=== PATIENT | female | born 1970 | race Caucasian/White ===

== ENCOUNTER 2017-02-01 15:12 | Inpatient (IN) | payer BC, OTHER ==
[~2017-02-01] VITALS: Ht 157.5 cm; Wt 61.2 kg
[2017-02-01] MEDS ORDERED: VALT500T PO (15:39)
[2017-02-01] MEDS ORDERED: LABE100T2 PO (15:39)
[2017-02-01] MEDS ORDERED: MONT10TA2 PO (15:39)
[2017-02-01 15:41] VITALS: BP 131/86; PULSE 75; RESP 17; TEMP 99.4; O2SAT 97
--- NOTE | 2017-02-01 16:07 | PD ---
HPI Chief Complaint: Injury Time Seen by Provider: 15:48 Travel History International Travel<30 days: No Contact w/Intl Traveler<30days: No Traveled to known affect area: No History of Present Illness HPI 46 F with left arm pain x approx 30 minutes. pt fell four rungs up from a ladder onto L arm. sudden onset pain. constant. better with morphine iv by ems and with immobilization. sensation normal LUE. no head trauma/loc. no additional complaint. PFSH Past Medical History Asthma: Yes Cardiovascular Problems: Yes (HTN) GERD: Yes Hypertension: Yes Respiratory: Yes (ASTHMA) Influenza Vaccination: Yes ?: Not : 2 Miscarriage: 2 Ovarian Cysts: Yes Social History Alcohol Use: No Tobacco Use: No Substance Use: No Allergies-Medications (Allergen,Severity, Reaction): Coded Allergies: latex (Verified Allergy, Mild, Rash, 02/01/17) codeine (Verified Allergy, Unknown, 02/01/17) Reported Meds & Prescriptions Reported Meds & Active Scripts Active Reported Valtrex (Valacyclovir HCl) 500 Mg Tab 500 Mg PO DAILY Singulair (Montelukast Sodium) 10 Mg Tab 10 Mg PO HS Labetalol (Labetalol HCl) 100 Mg Tab 100 Mg PO BID Review of Systems General / Constitutional: No: Fever Neurologic: No: Weakness, Paresthesia, Sensory Disturbance Physical Exam Narrative GENERAL: 46 F, mild to moderate distress 2/2 pain SKIN: Warm and dry. HEAD: Normocephalic. EYES: No scleral icterus. No injection or drainage. NECK: Supple, trachea midline. No JVD or lymphadenopathy. CARDIOVASCULAR: Regular rate and rhythm without murmurs, gallops, or rubs. RESPIRATORY: Breath sounds equal bilaterally. No accessory muscle use. GASTROINTESTINAL: Abdomen soft, non-tender, nondistended. MUSCULOSKELETAL: No cyanosis, or edema. Deformity LUE proximal to elbow. LUE immobilized with splint. 2+ radial artery pulse bilaterally. Hand operations clerk intact bilaterally. BACK: Nontender without obvious deformity. No CVA tenderness. Data Data Last Documented VS Vital Signs Date Time Temp Pulse Resp B/P (MAP) Pulse Ox O2 Delivery O2 Flow Rate FiO2 02/01/17 15:41 99.4 75 17 131/86 (101) 97 VS reviewed Orders Orders Humerus (Min 2vws) (02/01/17 ) Complete Blood Count With Diff (02/01/17 16:26) Comprehensive Metabolic Panel (02/01/17 16:26) Iv Access Insert/Monitor (02/01/17 16:26) Oximetry (02/01/17 16:26) Oxygen Administration (02/01/17 16:26) [employer] Request For Service (02/01/17 16:26) Ecg Monitoring (02/01/17 16:26) Ondansetron Inj (Zofran Inj) (02/01/17 16:30) Sodium Chloride 0.9% Flush (Ns Flush) (02/01/17 16:30) Hydromorphone Pf Inj (Dilaudid Pf Inj) (02/01/17 16:30) Propofol 500 Mg/50 Ml Inj (Diprivan 500 (02/01/17 16:30) Splinting (02/01/17 ) Consult Orthopedic (02/01/17 ) Admit Order (Ed Use Only) (02/01/17 16:57) Ct Elbow W/O Contrast (02/01/17 ) Labs MDM Medical Decision Making Medical Screen Exam Complete: Yes Emergency Medical Condition: Yes Differential Diagnosis humerus fracture, elbow fracture, shoulder dislocaiton Narrative Course Humerus XRAY: distal humerus fracture/elbow fracture, 100% displacement o Procedural sedation with reduction at bedside. long posterior sling applied after reduction. 2+ radial artery pulse before and after. pt tolerated well. ct pending d/w COOKIE Cedeno for Dr Zuñiga, long posterior, CT arm, npo p mn d/w Dr Ramirez for [facility] pt agreeable with plan Procedures Procedure Narrative After the risks and benefits were discussed the following procedure was performed: MODERATE SEDATION: The patient was placed on a surveillance monitor and pulse oximetry. An ambu bag and suction was immediately available at bedside. The patient was monitored by the nurse. Oxygen saturation , heart rate and blood pressure were monitored. Procedural sedation was acheived using propofol. The patient was observed until awake and alert. Procedural Sedation time in attendance was 10 minutes. FRACTURE REDUCTION: CLOSED REDUCTION WITH TRACTION COUNTER TRACTION FOR ANGULATED DISTAL HUMERUS FRACTURE. PROCEDURAL SEDATION WITH PROPOFOL. 2+ RADIAL ARTERY PULSES BEFORE AND AFTER. PT TOLERATED WELL. LONG POSTERIOR SPLINT PLACED. Diagnosis Primary Impression: Humerus distal fracture Qualified Codes: S42.402A - Unspecified fracture of lower end of left humerus , initial encounter for closed fracture Additional Impressions: Elbow fracture, left Qualified Codes: S42.402A - Unspecified fracture of lower end of left humerus , initial encounter for closed fracture Fall Qualified Codes: W19.XXXA - Unspecified fall, initial encounter Admitting Information Admitting Physician Requests: Donald Jc MD Feb 01, 2017 16:07
[2017-02-01] MEDS ORDERED: SODIUM CHLORIDE 0.9% FLUSH 10 ML FLUSH IVF PRN (16:30)
[2017-02-01] MEDS ORDERED: HYDROmorphone HCL PF 1 MG/ML VIAL IVS ONE (16:30)
[2017-02-01] MEDS ORDERED: ONDANSETRON HCL 4 MG/2 ML VIAL IVP ONE (16:30)
[2017-02-01] MEDS ORDERED: PROPOFOL 500 MG/50 ML BTL IV ONE (16:30)
--- NOTE | 2017-02-01 16:34 | RADRPT ---
EXAM DATE/TIME: 02/01/2017 16:14 [facility] COMPARISON: No previous studies available for comparison. INDICATIONS : Left humers pain after fall off ladder. Pain near elbow. MEDICAL HISTORY : None. SURGICAL HISTORY : None. ENCOUNTER: Initial ACUITY: 1 day PAIN SCORE: 10/10 LOCATION: Left humerus. FINDINGS: The examination demonstrates an impacted, 100% displaced fracture of the distal left humerus. There i s extension vertically down into the lateral epicondyles. There is mild comminution. CONCLUSION: 1. Impacted, 100% displaced fracture of the left elbow. Donald Ramos MD on February 01, 2017 at 16:31 Board Certified Radiologist. This report was verified electronically.
[2017-02-01 17:15] VITALS: O2SAT 100
[2017-02-01 17:28] LABS: AUTOMATED NEUTROPHIL # 10.6 TH/MM3 (1.8-7.7); BASOPHIL # 0.1 TH/MM3 (0-0.2); BASOPHIL % 0.4 % (0.0-2.0); EOSINOPHIL # 0.1 TH/MM3 (0-0.4); EOSINOPHIL % 0.6 % (0.0-4.0); HEMATOCRIT 40.9 % (35.0-46.0); HEMO FLAGS DIFF FINAL; LYMPH % 13.3 % (9.0-44.0); LYMPHOCYTE # 1.8 TH/MM3 (1.0-4.8); MEAN CELL VOLUME 87.8 FL (80.0-100.0); MEAN CORPUSCULAR HEMOGLOBIN 28.7 PG (27.0-34.0); MEAN CORPUSCULAR HGB CONC 32.6 % (32.0-36.0); MONO % 8.1 % (0.0-8.0); NEUT % 77.6 % (16.0-70.0); PLATELET COUNT 228 TH/MM3 (150-450); RED BLOOD COUNT 4.66 MIL/MM3 (4.00-5.30); WHITE BLOOD COUNT 13.6 TH/MM3 (4.0-11.0)
[2017-02-01 17:39] LABS: ALT (GPT) 19 U/L (10-53)
[2017-02-01 17:42] LABS: ALKALINE PHOSPHATASE 83 U/L (45-117); TOTAL BILIRUBIN ADULT 0.5 MG/DL (0.2-1.0)
[2017-02-01 17:43] LABS: ANION GAP 6 MEQ/L (5-15); AST (GOT) 24 U/L (15-37); BICARBONATE 25.2 MEQ/L (21.0-32.0); BLOOD UREA NITROGEN 12 MG/DL (7-18); CHLORIDE 110 MEQ/L (98-107); GLOMERULAR FILTRATION RATE 67 ML/MIN (>89); SODIUM (NA) 141 MEQ/L (136-145)
[2017-02-01] MEDS ORDERED: ACETAMINOPHEN 325 MG TAB PO PRN ×2 (17:45)
[2017-02-01] MEDS ORDERED: NALOXONE HCL 0.4 MG/ML AMP IV PUSH PRN (17:45)
[2017-02-01] MEDS ORDERED: ZOLPIDEM TARTRATE 5 MG TAB PO PRN (17:45)
[2017-02-01] MEDS ORDERED: SODIUM CHLORIDE 0.9% FLUSH 10 ML FLUSH IV FLUSH PRN (17:45)
[2017-02-01] MEDS ORDERED: oxyCODONE/ACETAMINOPHEN 5 MG/325 MG TAB PO PRN (17:45)
[2017-02-01] MEDS ORDERED: MAGNESIUM HYDROXIDE SUSP 30 ML CUP PO PRN (17:45)
[2017-02-01] MEDS ORDERED: HYDROmorphone HCL PF 1 MG/ML VIAL IV PUSH PRN ×2 (17:45)
[2017-02-01] MEDS ORDERED: PROCHLORPERAZINE 25 MG SUPP RECTAL PRN (17:45)
[2017-02-01] MEDS ORDERED: BISACODYL 10 MG SUPP RECTAL PRN (17:45)
[2017-02-01] MEDS ORDERED: LACTULOSE SYRUP 20 GM/30 ML CUP PO PRN (17:45)
[2017-02-01] MEDS ORDERED: SENNOSIDES 8.6 MG TAB PO PRN (17:45)
--- NOTE | 2017-02-01 18:16 | HHI.HP ---
[facility] Service [facility] Primary Care Physician No Primary Care Physician Admission Diagnosis L Humerus/Elbow Fracture Diagnoses: (1) Elbow fracture, left Diagnosis: Principal (2) Fall Chief Complaint: Left elbow pain Travel History International Travel<30 Days: No Contact w/Intl Traveler <30 Da: No Traveled to Known Affected Are: No History of Present Illness Mrs. Tristan is a 46-year-old female patient with a known medical history of hypertension and asthma who presented to the ED after falling off her ladder onto her left elbow. She says she was adjusting something on her RV and slipped off the ladder and fell. Patient states she lives in [place] with her family and is in [place] visiting her mother. She is a Nurse Practitioner. States she is relatively healthy, has hypertension, controlled on medication. Asthma well controlled, takes Singulair daily. Does admit to taking Valtrex for prophylaxis of herpes in the eye. Denies any recent illness including fever, chills, cough, shortness of breath, abdominal pain, nausea, vomiting, diarrhea or dysuria. Review of Systems Constitutional: DENIES: Diaphoretic episodes, Fatigue, Fever, Weight gain, Weight loss, Chills, Dizziness, Change in appetite Endocrine: DENIES: Abnorml menstrual pattern, Heat/cold intolerance Eyes: DENIES: Blurred vision, Diplopia, Eye inflammation, Eye pain Ears, nose, mouth, throat: DENIES: Tinnitus, Hearing loss, Vertigo Respiratory: DENIES: Apneas, Cough, Snoring, Wheezing, Hemoptysis Cardiovascular: DENIES: Chest pain, Palpitations, Syncope, Dyspnea on Exertion Gastrointestinal: DENIES: Abdominal pain, Black stools, Bloody stools, Constipation Genitourinary: DENIES: Abnormal vaginal bleeding, Dysmenorrhea, Dyspareunia Musculoskeletal: COMPLAINS OF: Joint pain, DENIES: Muscle aches, Stiffness, Joint Swelling Integumentary: DENIES: Abnormal pigmentation, Pruritus, Rash Hematologic/lymphatic: DENIES: Bruising, Lymphadenopathy Immunologic/allergic: DENIES: Eczema, Urticaria Neurologic: DENIES: Abnormal gait, Headache, Localized weakness, Paresthesias, Seizures, Speech Problems Psychiatric: DENIES: Anxiety, Confusion, Mood changes, Depression, Hallucinations, Agitation, Suicidal Ideation Except as stated in HPI: all other systems reviewed are Neg Past Family Social History Past Medical History Hypertension Asthma Past Surgical History D & C Oophorectomy Reported Medications Active Reported Valtrex (Valacyclovir HCl) 500 Mg Tab 500 Mg PO DAILY Singulair (Montelukast Sodium) 10 Mg Tab 10 Mg PO HS Labetalol (Labetalol HCl) 100 Mg Tab 100 Mg PO BID Allergies: Coded Allergies: latex (Verified Allergy, Mild, Rash, 02/01/17) codeine (Verified Allergy, Unknown, 02/01/17) Active Ordered Medications Current Medications Medications (Trade) Dose Ordered Sig/Romario Route Start Time Stop Time Status Last Admin (NS Flush) 2 ml UNSCH PRN IVF 02/01/17 16:30 02/01/17 16:55 Sodium Chloride 1,000 ml @ 75 mls/hr [id number] IV 02/01/17 17:44 UNV (NS Flush) 2 ml UNSCH PRN IV FLUSH 02/01/17 17:45 UNV (NS Flush) 2 ml BID IV FLUSH 02/01/17 21:00 UNV (Tylenol) 650 mg Q4H PRN PO 02/01/17 17:45 UNV (Zofran Inj) 4 mg Q6H PRN IVP 02/01/17 17:45 UNV (Compazine Supp) 25 mg Q12H PRN MN 02/01/17 17:45 UNV (Ambien) 5 mg HS PRN PO 02/01/17 17:45 UNV (Tylenol) 650 mg Q6H PRN PO 02/01/17 17:45 UNV (Percocet 5-325 Mg) 1 tab Q6H PRN PO 02/01/17 17:45 UNV (Percocet 10-325 Mg) 1 tab Q6H PRN PO 02/01/17 17:45 UNV (Dilaudid Pf Inj) 0.5 mg Q3H PRN IV PUSH 02/01/17 17:45 UNV (Dilaudid Pf Inj) 1 mg Q3H PRN IV PUSH 02/01/17 17:45 UNV (Dilaudid Pf Inj) 1 mg Q3H PRN IV PUSH 02/01/17 17:45 UNV (Narcan Inj) 0.4 mg UNSCH PRN IV PUSH 02/01/17 17:45 UNV (Cely-Colace) 1 tab BID PO 02/01/17 21:00 UNV (Milk Of Magnesia Liq) 30 ml Q12H PRN PO 02/01/17 17:45 UNV (Senokot) 17.2 mg Q12H PRN PO 02/01/17 17:45 UNV (Dulcolax Supp) 10 mg DAILY PRN RECTAL 02/01/17 17:45 UNV (Lactulose Liq) 30 ml DAILY PRN PO 02/01/17 17:45 UNV (Trandate) 100 mg BID PO 02/01/17 21:00 UNV (Singulair) 10 mg HS PO 02/01/17 21:00 UNV (Valtrex) 500 mg DAILY PO 02/02/17 09:00 UNV (Protonix) 40 mg ONCE ONCE PO 02/01/17 18:00 02/01/17 18:01 UNV (Protonix) 40 mg DAILY PO 02/02/17 09:00 UNV Family History Maternal medical history significant for hypertension, cardiovascular disease and liver cancer. Social History Denies any tobacco history. Admits to occasional alcohol use. Denies any illicit drug use. Physical Exam Vital Signs Vital Signs Date Time Temp Pulse Resp B/P (MAP) Pulse Ox O2 Delivery O2 Flow Rate FiO2 02/01/17 15:41 99.4 75 17 131/86 (101) 97 Physical Exam GENERAL: This is a well-nourished, well-developed female patient, lying in bed comfortably. SKIN: No rash. Warm and dry. HEAD: Atraumatic. Normocephalic. No temporal or scalp tenderness. EYES: Pupils equal round and reactive. Extraocular motions intact. No scleral icterus. No injection or drainage. ENT: Nose without bleeding, purulent drainage or septal hematoma. Airway patent. TONGUE MIDLINE NECK: Trachea midline. No JVD. Supple. CARDIOVASCULAR: Regular rate and rhythm without murmurs, gallops, or rubs. S1, S2 NO S3 OR S4 RESPIRATORY: Clear to auscultation. Breath sounds equal bilaterally. No wheezes , rales, or rhonchi. GASTROINTESTINAL: Abdomen soft, non-tender, nondistended. No guarding. MUSCULOSKELETAL: Extremities without clubbing, cyanosis, or edema. No joint effusion, or edema noted. Left arm in sling, post olecranon reduction, with lupillo bandage in place. NEUROLOGICAL: Awake and alert. Cranial nerves II through XII intact. Motor and sensory grossly within normal limits. Five out of 5 muscle strength in all muscle groups. Normal speech. INSIGHT AND JUDGEMENT ARE GOOD MOOD AND BEHAVIOR ARE APPROPRIATE Laboratory Laboratory Tests Test 02/01/17 17:00 White Blood Count 13.6 Red Blood Count 4.66 Hemoglobin 13.4 Hematocrit 40.9 Mean Corpuscular Volume 87.8 Mean Corpuscular Hemoglobin 28.7 Mean Corpuscular Hemoglobin Concent 32.6 Red Cell Distribution Width 13.0 Platelet Count 228 Mean Platelet Volume 8.2 Neutrophils (%) (Auto) 77.6 Lymphocytes (%) (Auto) 13.3 Monocytes (%) (Auto) 8.1 Eosinophils (%) (Auto) 0.6 Basophils (%) (Auto) 0.4 Neutrophils # (Auto) 10.6 Lymphocytes # (Auto) 1.8 Monocytes # (Auto) 1.1 Eosinophils # (Auto) 0.1 Basophils # (Auto) 0.1 CBC Comment DIFF FINAL Differential Comment Blood Urea Nitrogen 12 Creatinine 0.91 Random Glucose 130 Total Protein 6.9 Albumin 3.3 Calcium Level 7.6 Alkaline Phosphatase 83 Aspartate Amino Transf (AST/SGOT) 24 Alanine Aminotransferase (ALT/SGPT) 19 Total Bilirubin 0.5 Sodium Level 141 Potassium Level 4.0 Chloride Level 110 Carbon Dioxide Level 25.2 Anion Gap 6 Estimat Glomerular Filtration Rate 67 Result Diagram: 02/01/17 1700 02/01/17 1700 Imaging Last Impressions Humerus X-Ray 02/01/17 0000 Signed Impressions: Service Date/Time: Wednesday, February 01, 2017 16:14 - CONCLUSION: 1. Impacted, 100%% displaced fracture of the left elbow. Donald Ramos MD Caprini VTE Risk Assessment Caprini VTE Risk Assessment: No/Low Risk (score <= 1) Caprini Risk Assessment Model Point Value = 1 Point Value = 2 Point Value = 3 Point Value = 5 Age 41-60 Minor surgery BMI > 25 kg/m2 Swollen legs Varicose veins or History of unexplained or recurrent spontaneous Oral contraceptives or hormone replacement Sepsis (< 1 month) Serious lung disease, including pneumonia (< 1 month) Abnormal pulmonary function Acute myocardial infarction Congestive heart failure (< 1 month) History of inflammatory bowel disease Medical patient at bed rest Age 61-74 Arthroscopic surgery Major open surgery (> 45 min) Laparoscopic surgery (> 45 min) Malignancy Confined to bed (> 72 hours) Immobilizing plaster cast Central venous access Age >= 75 History of VTE Family history of VTE Factor V Leiden Prothrombin [id number] Lupus anticoagulant Anticardiolipin antibodies Elevated serum homocysteine Heparin-induced thrombocytopenia Other congenital or acquired thrombophilia Stroke (< 1 month) Elective arthroplasty Hip, pelvis, or leg fracture Acute spinal cord injury (< 1 month) Prophylaxis Regimen Total Risk Factor Score Risk Level Prophylaxis Regimen 0-1 Low Early ambulation 2 Moderate Order ONE of the following: *Sequential Compression Device (SCD) *Heparin 5000 units SQ BID 3-4 Higher Order ONE of the following medications: *Heparin 5000 units SQ TID *Enoxaparin/Lovenox 40 mg SQ daily (WT < 150 kg, CrCl > 30 mL/min) *Enoxaparin/Lovenox 30 mg SQ daily (WT < 150 kg, CrCl > 10-29 mL/min) *Enoxaparin/Lovenox 30 mg SQ BID (WT < 150 kg, CrCl > 30 mL/min) AND/OR *Sequential Compression Device (SCD) 5 or more Highest Order ONE of the following medications: *Heparin 5000 units SQ TID (Preferred with Epidurals) *Enoxaparin/Lovenox 40 mg SQ daily (WT < 150 kg, CrCl > 30 mL/min) *Enoxaparin/Lovenox 30 mg SQ daily (WT < 150 kg, CrCl > 10-29 mL/min) *Enoxaparin/Lovenox 30 mg SQ BID (WT < 150 kg, CrCl > 30 mL/min) AND *Sequential Compression Device (SCD) Assessment and Plan Assessment and Plan Mrs. Tristan is a 46-year-old female patient with a known medical history of hypertension and asthma who presented to the ED after falling off her ladder onto her left elbow. She says she was adjusting something on her RV and slipped off the ladder and fell. Displaced fracture of the left elbow - Humerus x-ray reviewed showing impacted, 100% displaced fracture of the left elbow. - Consult placed to Dr. Zuñiga, appreciate input. Possibly surgery in am, keep NPO after midnight. - Control pain. Dilaudid IV given in ED. Percocet PO available PRN per pain scale. Dilaudid IV available PRN per pain scale. - Control nausea, compazine available PRN. - Ensure hydration, NS @ 75 ml/hr. Hypertension, chronic: Continue Labetalol 100 mg PO BID. Well-controlled, monitor BP. Asthma, chronic: Continue Singulair. Chronic herpes prevention: Continue home Valtrex. GERD/GI Prophylaxis: Protonix. DVT Prophylaxis: SCDs. The exam, history, and the medical decision-making described in the above note were completed with the assistance of the mid-level provider. I reviewed and agree with the findings presented. I attest that I had a [id number] encounter with the patient on the same day, and personally performed and documented my assessment and findings in the medical record. Code Status FULL CODE Discussed Condition With ROXIE RN AND PT AND ER PHYSICIAN AND NNPS AND FAMILY Physician Certification 2 Midnight Certification Type: Admission for Inpatient Services Order for Inpatient Services The services are ordered in accordance with Medicare regulations or non- Medicare payer requirements, as applicable. In the case of services not specified as inpatient-only, they are appropriately provided as inpatient services in accordance with the 2-midnight benchmark. Estimated LOS (days): 2 2 days is the estimated time the patient will need to remain in the hospital, assuming treatment plan goals are met and no additional complications. Post-Hospital Plan: Home Problem Qualifiers (1) Elbow fracture, left: Qualified Codes: S42.402A - Unspecified fracture of lower end of left humerus, initial encounter for closed fracture (2) Fall: Qualified Codes: W19.XXXA - Unspecified fall, initial encounter Calista Simmons Feb 01, 2017 18:16 Leandro Ramirez DO Feb 01, 2017 18:33
[2017-02-01 18:23] VITALS: BP 131/81; PULSE 79; RESP 17; O2SAT 97
--- NOTE | 2017-02-01 18:26 | RADRPT ---
EXAM DATE/TIME: 02/01/2017 17:57 [facility] COMPARISON: HUMERUS LEFT (MIN 2VWS), February 01, 2017, 16:14. INDICATIONS : Evaluate left elbow fracture. RADIATION DOSE: 17.90 CTDIvol (mGy) MEDICAL HISTORY : Hypertension. Asthma SURGICAL HISTORY : None. ENCOUNTER: Initial ACUITY: 1 day PAIN SCALE: 10/10 LOCATION: Left elbow TECHNIQUE: Volumetric scanning of the elbow was performed. Using automated exposure control and adjustment of t he mA and/or kV according to patient size, radiation dose was kept as low as reasonably achievable to obtain optimal diagnostic quality images. DICOM format image data is available electronically for r eview and comparison. FINDINGS: An extremely comminuted intra-articular fracture is seen at the distal humerus. The 2 Main fracture l angelina are oblique sagittal in orientation and separate the epicondyles from the shaft. The epicondylar fracture fragments are displaced and angulated posteriorly with respect to the shaft fragment. Ther e is also slight foreshortening. There is an 11 mm anteriorly displaced fracture fragment in the uppe r antecubital fossa. An oblique sagittally oriented fracture line extends through the articular surfa ce near the capitellum/trochlea junction and with approximately 4.4 mm of separation at the level of the articular surface. There are no subluxations. The proximal radius and ulna are intact. CONCLUSION: Severely comminuted intra-articular fracture of the distal left humerus as described above. Clemente Haider MD on February 01, 2017 at 18:19 Board Certified Radiologist. This report was verified electronically.
--- NOTE | 2017-02-01 18:27 | RADRPT ---
EXAM DATE/TIME: 02/01/2017 18:00 [facility] COMPARISON: No previous studies available for comparison. INDICATIONS : Cough. MEDICAL HISTORY : None. SURGICAL HISTORY : None. ENCOUNTER: Initial ACUITY: 1 day PAIN SCORE: 0/10 LOCATION: Bilateral chest FINDINGS: A single view of the chest demonstrates the lungs to be symmetrically aerated without evidence of mas s, infiltrate or effusion. The cardiomediastinal contours are unremarkable. Osseous structures are intact. CONCLUSION: No acute cardiopulmonary disease demonstrated. Clemente Haider MD on February 01, 2017 at 18:25 Board Certified Radiologist. This report was verified electronically.
[2017-02-01] MEDS ORDERED: PANTOPRAZOLE SOD 40 MG DELAYED RELEASE TAB PO ONE (19:00)
[2017-02-01] MEDS: SODIUM CHLOR 0.45% 1000 ML INJ 1,000 ML IV SCH (19:43)
[2017-02-01] MEDS: HYDROmorphone HCL PF 1 MG/ML VIAL IV PUSH PRN (19:43)
[2017-02-01] MEDS: SODIUM CHLORIDE 0.9% FLUSH 10 ML FLUSH IV FLUSH SCH (19:51)
[2017-02-01 20:00] VITALS: BP 148/85; PULSE 78; RESP 18; TEMP 97; O2SAT 100
[2017-02-01] MEDS: LABETALOL HCL 100 MG TAB PO SCH (20:41)
[2017-02-01] MEDS: DOCUSATE SODIUM 50 MG/SENNA 8.6 MG TAB PO SCH (20:41)
[2017-02-01] MEDS: MONTELUKAST SODIUM 10 MG TAB PO SCH (20:43)
[2017-02-01] MEDS: oxyCODONE/ACETAMINOPHEN 10 MG/325 MG TAB PO PRN (22:58)
[2017-02-01 23:35] VITALS: O2SAT 97
[2017-02-02] VITALS (8 sets, daily range): BP systolic 105–126; BP diastolic 71–87; PULSE 75–87; RESP 17–18; TEMP 97.8–98.5; O2SAT 97–99
[2017-02-02] MEDS: HYDROmorphone HCL PF 1 MG/ML VIAL IV PUSH PRN ×5 (01:19→15:33)
[2017-02-02] MEDS: ONDANSETRON HCL 4 MG/2 ML VIAL IVP PRN ×3 (04:58→23:20)
[2017-02-02 07:19] LABS: ANION GAP 8 MEQ/L (5-15); AST (GOT) 15 U/L (15-37); AUTOMATED NEUTROPHIL # 6.6 TH/MM3 (1.8-7.7); BASOPHIL % 0.2 % (0.0-2.0); BICARBONATE 24.6 MEQ/L (21.0-32.0); BLOOD UREA NITROGEN 7 MG/DL (7-18); CHLORIDE 105 MEQ/L (98-107); EOSINOPHIL # 0.1 TH/MM3 (0-0.4); EOSINOPHIL % 0.8 % (0.0-4.0); HEMATOCRIT 40.2 % (35.0-46.0); HEMO FLAGS DIFF FINAL; LYMPH % 24.7 % (9.0-44.0); LYMPHOCYTE # 2.7 TH/MM3 (1.0-4.8); MAGNESIUM 2.1 MG/DL (1.5-2.5); MEAN CELL VOLUME 88.8 FL (80.0-100.0); MEAN CORPUSCULAR HEMOGLOBIN 28.8 PG (27.0-34.0); MEAN CORPUSCULAR HGB CONC 32.4 % (32.0-36.0); MONO % 13.1 % (0.0-8.0); NEUT % 61.2 % (16.0-70.0); PLATELET COUNT 246 TH/MM3 (150-450); POTASSIUM 3.4 MEQ/L (3.5-5.1); RED BLOOD COUNT 4.52 MIL/MM3 (4.00-5.30); RED CELL DISTRIBUTION WIDTH 12.9 % (11.6-17.2); SODIUM (NA) 138 MEQ/L (136-145); WHITE BLOOD COUNT 10.8 TH/MM3 (4.0-11.0)
[2017-02-02 07:28] LABS: ALKALINE PHOSPHATASE 82 U/L (45-117); ALT (GPT) 18 U/L (10-53); GLOMERULAR FILTRATION RATE 88 ML/MIN (>89); TOTAL BILIRUBIN ADULT 0.8 MG/DL (0.2-1.0)
--- NOTE | 2017-02-02 08:14 | PD.ORT.PN ---
Subjective Subjective Remarks s/p fall off ladder left elbow pain. no other complaints. Objective Vitals Vital Signs Date Time Temp Pulse Resp B/P (MAP) Pulse Ox O2 Delivery O2 Flow Rate FiO2 02/02/17 04:00 98.0 80 18 126/71 (89) 99 02/02/17 00:00 98.2 87 18 115/81 (92) 98 02/01/17 23:35 97 2.00 02/01/17 20:00 97.0 78 18 148/85 (106) 100 02/01/17 18:52 02/01/17 18:23 97 Room Air 02/01/17 18:23 79 17 131/81 (98) 97 Room Air 02/01/17 18:23 97 02/01/17 17:15 100 2.00 02/01/17 17:15 100 Nasal Cannula 2.00 02/01/17 17:15 100 02/01/17 15:41 99.4 75 17 131/86 (101) 97 I/O 02/01/17 02/01/17 02/01/17 02/02/17 02/02/17 02/02/17 07:00 15:00 23:00 07:00 15:00 23:00 Intake Total 340 ml 696 ml 220 ml Output Total 320 ml 500 ml Balance 20 ml 696 ml -280 ml Intake Oral 340 ml 220 ml IV Total 696 ml Output Urine Total 320 ml 500 ml # Bowel Movements 0 0 Result Diagram: 02/02/17 0549 02/02/17 0549 Imaging Last 24 hours Impressions Chest X-Ray 02/01/17 1744 Signed Impressions: Service Date/Time: Wednesday, February 01, 2017 18:00 - CONCLUSION: No acute cardiopulmonary disease demonstrated. Clemente Haider MD Objective Remarks LUE: +long arm splint. intact. NVI Assessment & Plan Assessment and Plan 1) Left Supracondylar Humerus Fx -breakfast -npo after breakfast -sign consents -surgery this evening around 6pm Wilian Dasilva Feb 02, 2017 08:14
[2017-02-02] MEDS: LABETALOL HCL 100 MG TAB PO SCH ×2 (08:30→21:00)
[2017-02-02] MEDS: PANTOPRAZOLE SOD 40 MG DELAYED RELEASE TAB PO SCH (08:30)
[2017-02-02] MEDS: valACYclovir HCL 500 MG TAB PO SCH (08:30)
[2017-02-02] MEDS: DOCUSATE SODIUM 50 MG/SENNA 8.6 MG TAB PO SCH ×2 (08:30→21:00)
[2017-02-02] MEDS: SODIUM CHLORIDE 0.9% FLUSH 10 ML FLUSH IV FLUSH SCH ×2 (08:42→21:00)
[2017-02-02] MEDS: SODIUM CHLOR 0.45% 1000 ML INJ 1,000 ML IV SCH ×2 (08:43→22:18)
[2017-02-02 09:30] LABS: HEMOGLOBIN A1a 0.9 %; HEMOGLOBIN A1b 0.7 %; HEMOGLOBIN F 0.7 %; HEMOGLOBIN LA1C 1.9 %; HEMOGLOBIN P3 3.4 %
--- NOTE | 2017-02-02 10:02 | HHI.PR ---
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 minimal Objective Vitals Vital Signs Date Time Temp Pulse Resp B/P (MAP) Pulse Ox O2 Delivery O2 Flow Rate FiO2 02/02/17 09:11 97 02/02/17 08:00 97.8 83 18 115/87 (96) 98 02/02/17 04:00 98.0 80 18 126/71 (89) 99 02/02/17 00:00 98.2 87 18 115/81 (92) 98 02/01/17 23:35 97 2.00 02/01/17 20:00 97.0 78 18 148/85 (106) 100 02/01/17 18:52 02/01/17 18:23 97 Room Air 02/01/17 18:23 79 17 131/81 (98) 97 Room Air 02/01/17 18:23 97 02/01/17 17:15 100 2.00 02/01/17 17:15 100 Nasal Cannula 2.00 02/01/17 17:15 100 02/01/17 15:41 99.4 75 17 131/86 (101) 97 I/O 02/01/17 02/01/17 02/01/17 02/02/17 02/02/17 02/02/17 07:00 15:00 23:00 07:00 15:00 23:00 Intake Total 340 ml 696 ml 220 ml Output Total 320 ml 500 ml Balance 20 ml 696 ml -280 ml Intake Oral 340 ml 220 ml IV Total 696 ml Output Urine Total 320 ml 500 ml # Bowel Movements 0 0 Result Diagram: 02/02/17 0549 02/02/17 0549 Imaging Last Impressions Chest X-Ray 02/01/17 1744 Signed Impressions: Service Date/Time: Wednesday, February 01, 2017 18:00 - CONCLUSION: No acute cardiopulmonary disease demonstrated. Clemente Haider MD Upper Extremity CT 02/01/17 0000 Signed Impressions: Service Date/Time: Wednesday, February 01, 2017 17:57 - CONCLUSION: Severely comminuted intra-articular fracture of the distal left humerus as described above. Clemente Haider MD Humerus X-Ray 02/01/17 0000 Signed Impressions: Service Date/Time: Wednesday, February 01, 2017 16:14 - CONCLUSION: 1. Impacted, 100%% displaced fracture of the left elbow. Donald Ramos MD Objective Remarks awake and alert anicteric lungs clear, no wheezes regular rhythm Left UE- flexed- with dressing in place/Sling and swath LE - no edema A/P Problem List: (1) Elbow fracture, left ICD Code: S42.402A - Unspecified fracture of lower end of left humerus, initial encounter for closed fracture Status: Acute (2) Fall ICD Code: W19.XXXA - Unspecified fall, initial encounter Status: Acute Assessment and Plan Mrs. Tristan is a 46-year-old female patient with a known medical history of hypertension and asthma and anxiety disorder who presented to the ED after falling off her ladder onto her left elbow. She says she was adjusting something on her RV and slipped off the ladder and fell. Left dital humeral fracture - Humerus x-ray reviewed showing impacted, 100% displaced fracture of the left elbow. -seen by Orthopedics- taking her to surgery this pm - NPO Hypertension, chronic: Continue Labetalol 100 mg PO BID. Well-controlled, monitor BP. History of Hyperreactive airway disease/Asthma, in remission. Continue Singulair. on Breo as OP prn - states has not been taking it for over a month now Chronic herpes prevention: Continue home Valtrex. HYpokalemia- 10 meq KCL IV x 1 GERD/GI Prophylaxis: Protonix. IV today while NPO (as OP on po Zantac) Anxiety- patient reassured that we have the best orthopedics service DVT Prophylaxis: SCDs. d/w patient and family at bedside DC planning- patient was set to go back to [place] this Tuesday Problem Qualifiers (1) Elbow fracture, left: Qualified Codes: S42.402A - Unspecified fracture of lower end of left humerus, initial encounter for closed fracture (2) Fall: Qualified Codes: W19.XXXA - Unspecified fall, initial encounter Nathan Alexis MD Feb 02, 2017 10:02
[2017-02-02] MEDS ORDERED: POTASSIUM CHLOR 10 MEQ PREMIX 100 ML IV ONE (10:15)
[2017-02-02] MEDS ORDERED: ONDANSETRON HCL 4 MG/2 ML VIAL IV PUSH ONE ×2 (12:00→18:30)
[2017-02-02] MEDS ORDERED: LIDOCAINE HCL 1% PF 5 ML AMPULE OTHER ONE (12:00)
[2017-02-02] MEDS ORDERED: LACTATED RINGER'S 1000 ML INJ 1,000 ML IV ONE (12:00)
[2017-02-02] MEDS ORDERED: PROPOFOL 200 MG/20 ML AMP IV ONE (12:00)
[2017-02-02] MEDS ORDERED: STERILE WATER FOR INJECTION 20 ML VIAL ONE (12:00)
[2017-02-02] MEDS ORDERED: MIDAZOLAM HCL 2 MG/2 ML VIAL IV ONE (12:00)
[2017-02-02] MEDS ORDERED: SUCCINYLCHOLINE CHLORIDE 100 MG/5 ML SYRINGE IV PUSH ONE (12:00)
[2017-02-02] MEDS ORDERED: SODIUM CHLORIDE 0.9% INJ 250 ML IV ONE (12:00)
--- NOTE | 2017-02-02 15:02 | EKG ---
Date Performed: 02/01/2017 Time Performed: 21:29:32 PTAGE: 46 years EKG: Sinus rhythm NORMAL ECG NO PREVIOUS TRACING DOCTOR: Elan Carreon Interpretating Date/Time 02/02/2017 15:00:46
[2017-02-02] MEDS ORDERED: GENTAMICIN SULFATE 80 MG/2 ML VIAL ONE (16:07)
[2017-02-02] MEDS ORDERED: ceFAZolin INJ 1,000 MG VIAL ONE (17:30)
[2017-02-02] MEDS ORDERED: VANCOMYCIN HCL 1000 MG VIAL ONE (17:31)
[2017-02-02] MEDS ORDERED: DEXAMETHASONE SOD PHOS 4 MG/ML VIAL ONE (17:33)
[2017-02-02] MEDS ORDERED: FAMOTIDINE 20 MG/2 ML VIAL ONE (17:34)
[2017-02-02] MEDS ORDERED: SCOPOLAMINE 1.5 MG PATCH ONE (17:45)
[2017-02-02] MEDS ORDERED: ACETAMINOPHEN 1000 MG/100 ML 100 ML IV ONE (17:46)
[2017-02-02] MEDS ORDERED: METOCLOPRAMIDE HCL 10 MG/2 ML VIAL ONE (17:57)
[2017-02-02] MEDS ORDERED: DEXAMETHASONE SOD PHOS 4 MG/ML VIAL IV ONE (18:15)
[2017-02-02] MEDS ORDERED: FAMOTIDINE 20 MG/2 ML VIAL IV ONE (18:15)
[2017-02-02] MEDS ORDERED: METOCLOPRAMIDE HCL 10 MG/2 ML VIAL IV ONE (18:15)
[2017-02-02] MEDS ORDERED: ACETAMINOPHEN 1000 MG/100 ML VIAL IV ONE (18:15)
[2017-02-02] MEDS ORDERED: ceFAZolin 2 GM PREMIX 50 ML ONE (18:21)
[2017-02-02] MEDS ORDERED: SCOPOLAMINE 1.5 MG PATCH T-DERMAL ONE (18:30)
[2017-02-02] MEDS ORDERED: MORPHINE SULFATE 4 MG/ML INJ IV PUSH PRN (20:45)
[2017-02-02] MEDS ORDERED: ACETAMINOPHEN/HYDROcodone 325 MG/7.5 MG TAB PO PRN (20:45)
[2017-02-02] MEDS ORDERED: Post-op Orders (for Pharmacy) MISC XX ONE (20:45)
--- NOTE | 2017-02-02 20:46 | PD.OP ---
cc: Ignacio Gallagher MD Operative Report Date of Surgery: Feb 02, 2017 Preoperative Diagnosis: Comminuted intra-articular left distal humerus fracture Postoperative Diagnosis: Procedure: Open reduction internal fixation left distal humerus intra-articular fracture, proximal ulna osteotomy Anesthesia: Gen. Surgeon: Ignacio Gallagher Youth Worker(s): Elgin Rasmussen PA-C The surgical procedure was assisted by my physician financial planning assistant. My P.A. presence was necessary throughout this case for the manipulation and positioning of the surgical extremity. My P.A. was assisting me throughout the duration of this procedure. The skill set of a physician financial planning assistant was medically necessary to complete this procedure. During the surgical case the film technician was working at the back table and the physician financial planning assistant was directly assisting me. Operation and Findings: Patient was seen and evaluated preoperatively. Treatment options were discussed regarding distal humerus fracture including surgical and nonsurgical treatments. After detailed discussion of risk and benefits of procedure patient wishes to proceed with surgery. Risks of surgery include bleeding, infection, nonunion, malunion, painful hardware, loss of motion of shoulder and elbow, weakness and numbness of arm, ulnar nerve injury as well as medical competitions including blood clots stroke and . Patient was brought to operating room and placed on the OR table. GETA was administered by anesthesiologist. Patient was positioned in lateral decubitus position. Extremities were well-padded. Axillary roll was placed. Operative arm and shoulder were prepped with alcohol followed by Hibiclens and draped usual sterile fashion. Timeout procedure was performed. IV antibiotics were given prior to incision. A standard posterior approach was utilized. Subcutaneous tissues was dissected with Bovie. The lateral border of the triceps was elevated off of the distal humerus. Fracture site was visualized. Next, the ulnar nerve was identified and protected throughout the procedure. The nerve was intact. The fracture was identified along the medial distal humerus. Soft tissue was removed from the fracture site. Fracture site was cleaned with curettes. At this point the fracture was reduced using fracture tenaculums. There was some comminution between the medial and lateral condyles of the distal humerus. I was unable to achieve anatomic reduction at this time. Decision was made to proceed with proximal ulna osteotomy. Next attention was turned to proximal ulna osteotomy. Under fluoroscopy a K wire was placed at the appropriate position for a chevron osteotomy. The ulnar nerve was protected. Oscillating saw was used to cut the proximal ulna. Care was taken to avoid injury to the collateral ligaments. The proximal ulna and triceps were now reflected proximally. The articular surface was now well visualized. The fracture fragments were now manipulated. Attention was now turned towards reduction. Each of the fragments was manually manipulated. The lateral column was reduced first. The trochlear fragment was reduced next. The medial condyle was reduced last. Multiple K wires were used to hold provisional fixation. Multiplanar fluoroscopy and direct visualization confirmed excellent of fracture. Synthes distal humerus plates were selected. The medial plate was provisionally held the bone with K wires. 3.5 cortical screws were placed to compress plate to bone. Multiple 2.7 locking screws were placed distally. Care was taken to keep screws from penetrating the articular surface. Multiple screws were placed in each side of the fracture. All screws were predrilled and premeasured for appropriate length. Next the lateral plate was placed along the posterior lateral humerus. Plate was provisionally held to bone with K wires. 3.5 cortical screws were used to compress plate to bone. Additional 2.7 locking screws were placed distally. K wires were removed. At this point attention was turned towards repair of the ulnar osteotomy. The proximal ulna was reduced. Osteotomy keyed in anatomic alignment. K wires were used to hold provisional fixation. The proximal ulna plate was selected. Plate was provisionally held with K wires. 3.5 cortical screws were used to compress plate to bone. Additional locking screws were placed proximally. Final fluoroscopy revealed excellent alignment of fracture with well-placed hardware. Incision was thoroughly irrigated. Fascia was closed with #1 Vicryl , subcutaneous tissues closed with 3-0 Vicryl, and skin was closed with tim. Sterile dressings were applied. Needle and sponge counts were correct. Patient was placed into a sling, and then transferred to recovery room in stable condition Ignacio Gallagher MD Feb 02, 2017 20:46
--- NOTE | 2017-02-02 20:55 | RADRPT ---
EXAM DATE/TIME: 02/02/2017 20:07 [facility] COMPARISON: CT ELBOW LEFT W/O CONTRAST, February 01, 2017, 17:57. INDICATIONS : ORIF lt elbow. MEDICAL HISTORY : None. SURGICAL HISTORY : None. ENCOUNTER: Subsequent ACUITY: 1 day PAIN SCORE: Non-responsive. LOCATION: Left Elbow FINDINGS: Several views in the operating room show open reduction internal fixation of a very comminuted mid-di stal humeral fracture. There is a medial and a posterior lateral plate with multiple screws. Alignmen t is near-anatomic. There is evidence of temporary resection of some of the posterior olecranon which is later fixed with a posterior plate and multiple screws. CONCLUSION: Open reduction internal fixation of the distal humeral fracture in near-anatomic alignment. No eviden ce of an acute complication. Posterior olecranon resection and subsequent internal fixation tus one f acilitate the distal humeral repair. Clemente Haider MD on February 02, 2017 at 20:50 Board Certified Radiologist. This report was verified electronically.
[2017-02-02] MEDS ORDERED: DO NOT ADM ANY ANTICOAGULANT DRUGS PRN (21:00)
[2017-02-02] MEDS: MONTELUKAST SODIUM 10 MG TAB PO SCH (21:00)
[2017-02-02] MEDS ORDERED: HYDR-3583 PO (21:03)
[2017-02-02] MEDS ORDERED: *MEPERIDINE 25 MG INJ VIAL PERIprocedural Use ONLY ONE (21:05)
[2017-02-02] MEDS ORDERED: PROMETHAZINE INJ 25 MG/ML VIAL ONE (21:05)
[2017-02-02] MEDS: KETOROLAC TROMETHAMINE 30 MG/ML (IVP) VIAL IVP SCH (21:20)
--- NOTE | 2017-02-02 21:48 | MB ---
cc: KIRT VARMA DATE OF CONSULTATION 02/02/2017 REASON FOR CONSULTATION Left distal humerus fracture. CONSULTING PHYSICIAN Dr. Alexis HISTORY Basilia is a 46-year-old female who has a history of hypertension and asthma. She was on a ladder when she fell. She landed on her left side. She was adjusting something on her RV when she slipped and fell. She lives in [place] but is visiting family in [place]. She complains of left elbow pain. She had a small laceration to her knee. Pain is worse with movement. Pain is improved with rest. She denies any dizziness, syncope or loss of consciousness. PAST MEDICAL HISTORY/ILLNESSES Hypertension and asthma. SURGERIES D&C and oopherectomy. MEDICATIONS Include: 1. Valtrex. 2. Singulair. 3. Labetalol. ALLERGIES LATEX AND CODEINE. SOCIAL HISTORY The patient denies tobacco or drug use. She drinks alcohol occasionally. FAMILY HISTORY Positive for hypertension and coronary artery disease in her mother's side. REVIEW OF SYSTEMS The patient denies headache, visual changes, neck pain, chest pain, shortness of breath, abdominal pain, nausea, vomiting or recent weight loss, numbness or tingling of extremities. She complains of left arm pain. Pain is worse around her elbow. PHYSICAL EXAMINATION GENERAL: The patient is a pleasant 46-year-old female in no acute distress. She is awake and alert. She is alert and oriented x3. She appears well-developed, well-nourished. VITAL SIGNS: Temperature 98.4, pulse 84, respirations 18, blood pressure 121/85, O2 sat 98% on room air. HEAD: The patient is normocephalic. Pupils are equal. NECK: Soft, nontender. Trachea is midline. ABDOMEN: Soft, nontender, nondistended. EXTREMITIES: Examination of the left arm reveals no tenderness about her shoulder or fingers. She has intact sensation in radial, ulnar, median nerve distributions. She has swelling around the elbow. She has pain with any elbow motion. Forearm compartments are soft. Skin is intact. Examination of right arm reveals no pain with shoulder, elbow or wrist motion. Skin is intact. Radial pulses palpable. Sensation intact in all fingers. Examination of bilateral lower extremity reveals no pain with hip, knee or ankle motion. Sensation is intact in both feet. Dorsalis pedis pulses are palpable. She has a superficial abrasion on her anterior left knee. X-RAYS X-rays of left elbow were reviewed. X-rays reveal an intra-articular left distal humerus fracture. IMPRESSION 1. Fall off a ladder. 2. Displaced left distal humerus fracture. PLAN Treatment options were discussed with the patient. At this point I would recommend open reduction, internal fixation of left distal humerus. Risks of surgery include bleeding, infection, injury to arteries, nerves, blood vessels, nonunion, malunion, painful hardware, injury to ulnar nerve, weakness or numbness of hand, elbow stiffness, arthritis, painful hardware as well as medical complications including blood clot, stroke, heart attack and . All questions were answered. I will plan on surgery today. A mid-level provider in my office (nurse practitioner or physician assistant professor sculpture ) may see this patient on follow-up visits and continue to implement the objectives of this plan including: Starting or adjusting medications, injections , cast application, orthotics, brace application, physical therapy, radiological studies (including x-ray, MRI, CT, ultrasound, bone scan), vascular studies, neurologic studies, specialist consultation, and proceeding with surgical management, as appropriate. MD LATASHA Rasmussen/TRINI /6:31 PM /9:37 PM MTDD
[2017-02-02] MEDS ORDERED: INSULIN HUMAN REGULAR 1,000 UNITS/10 ML VIAL SQ PRN (22:30)
[2017-02-02] MEDS ORDERED: POVIDONE IODINE 5% (ANTISEPSIS KIT) 4 APPLICATIONS EACH NARE PRN (22:30)
[2017-02-02] MEDS ORDERED: LACTATED RINGER'S 1000 ML IV PRN (22:30)
[2017-02-02] MEDS ORDERED: SODIUM CHLORID 0.9% 500 ML IV PRN (22:30)
[2017-02-02] MEDS ORDERED: CHLORHEXIDINE GLUCONATE 2 % 1 PACK (2 CLOTHS) TOPICAL PRN (22:30)
[2017-02-02] MEDS ORDERED: METOPROLOL TARTRATE 25 MG TAB PO PRN (22:30)
[2017-02-03] VITALS: BP 112/78; PULSE 73; RESP 17; TEMP 98; O2SAT 99
[2017-02-03] MEDS: oxyCODONE/ACETAMINOPHEN 10 MG/325 MG TAB PO PRN ×3 (00:26→15:20)
[2017-02-03] MEDS ORDERED: ceFAZolin 2 GM PREMIX 50 ML IV SCH ×2 (02:00)
[2017-02-03] MEDS: ceFAZolin 2 GM PREMIX 50 ML IV SCH ×3 (02:09→18:00)
[2017-02-03 04:00] VITALS: BP 98/62; PULSE 91; RESP 15; TEMP 98.7; O2SAT 97
[2017-02-03] MEDS: KETOROLAC TROMETHAMINE 30 MG/ML (IVP) VIAL IVP SCH ×2 (05:56→14:00)
[2017-02-03] MEDS: PANTOPRAZOLE SOD 40 MG DELAYED RELEASE TAB PO SCH (07:59)
[2017-02-03] MEDS: valACYclovir HCL 500 MG TAB PO SCH (07:59)
[2017-02-03] MEDS: LABETALOL HCL 100 MG TAB PO SCH (07:59)
[2017-02-03] MEDS: DOCUSATE SODIUM 50 MG/SENNA 8.6 MG TAB PO SCH (07:59)
[2017-02-03 08:00] VITALS: BP 100/60; PULSE 76; RESP 16; TEMP 98; O2SAT 98
[2017-02-03] MEDS: SODIUM CHLORIDE 0.9% FLUSH 10 ML FLUSH IV FLUSH SCH (08:07)
--- NOTE | 2017-02-03 08:32 | HHI.PR ---
Subjective Remarks minimal pain looking forward to going home PT/OT consulted no nausea or vomiting Objective Vitals Vital Signs Date Time Temp Pulse Resp B/P (MAP) Pulse Ox O2 Delivery O2 Flow Rate FiO2 02/03/17 04:00 98.7 91 15 98/62 (74) 97 02/03/17 00:00 98.0 73 17 112/78 (89) 99 02/02/17 21:55 98.6 83 17 123/77 (92) 100 Room Air 02/02/17 21:45 82 17 136/80 (98) 100 Nasal Cannula 2 02/02/17 21:30 73 14 140/81 (100) 99 Nasal Cannula 2 02/02/17 21:15 92 14 189/115 (139) 100 Nasal Cannula 2 02/02/17 21:00 93 14 144/79 (100) 100 Nasal Cannula 2 02/02/17 20:57 97.5 90 8 142/84 (103) 100 Nasal Cannula 3 02/02/17 18:33 98 02/02/17 17:45 79 15 138/77 (97) 100 02/02/17 17:45 100 Room Air 02/02/17 17:45 79 02/02/17 16:00 98.4 84 18 121/85 (97) 98 02/02/17 12:00 98.5 75 17 105/83 (90) 98 02/02/17 09:11 97 I/O 02/02/17 02/02/17 02/02/17 02/03/17 02/03/17 02/03/17 07:00 15:00 23:00 07:00 15:00 23:00 Intake Total 696 ml 820 ml 1850 ml 1071 ml Output Total 500 ml 100 ml Balance 696 ml 320 ml 1750 ml 1071 ml Intake Oral 720 ml 0 ml 480 ml IV Total 696 ml 100 ml 550 ml 591 ml Other 1300 ml Output Urine Total 500 ml 0 ml Estimated Blood Loss 100 ml # Voids 3 1 # Bowel Movements 0 0 Result Diagram: 02/02/17 0549 02/02/17 0549 Other Results Last Impressions Elbow X-Ray 02/02/17 0000 Signed Impressions: Service Date/Time: Thursday, February 02, 2017 20:07 - CONCLUSION: Open reduction internal fixation of the distal humeral fracture in near-anatomic alignment. No evidence of an acute complication. Posterior olecranon resection and subsequent internal fixation tus one facilitate the distal humeral repair. Clemente Haider MD Chest X-Ray 02/01/17 1744 Signed Impressions: Service Date/Time: Wednesday, February 01, 2017 18:00 - CONCLUSION: No acute cardiopulmonary disease demonstrated. Clemente Haider MD Upper Extremity CT 02/01/17 0000 Signed Impressions: Service Date/Time: Wednesday, February 01, 2017 17:57 - CONCLUSION: Severely comminuted intra-articular fracture of the distal left humerus as described above. Clemente Haider MD Humerus X-Ray 02/01/17 0000 Signed Impressions: Service Date/Time: Wednesday, February 01, 2017 16:14 - CONCLUSION: 1. Impacted, 100%% displaced fracture of the left elbow. Donald Ramos MD Objective Remarks awake and alert anicteric lungs clear, no wheezes regular rhythm Left UE- S/S in place post op dressing in place, moving fingers freely LE - no edema Procedures 02/02- ORIF left humeral fracture A/P Problem List: (1) Elbow fracture, left ICD Code: S42.402A - Unspecified fracture of lower end of left humerus, initial encounter for closed fracture Status: Acute (2) Fall ICD Code: W19.XXXA - Unspecified fall, initial encounter Status: Acute Assessment and Plan Mrs. Tristan is a 46-year-old female patient with a known medical history of hypertension and asthma and anxiety disorder who presented to the ED after falling off her ladder onto her left elbow. She says she was adjusting something on her RV and slipped off the ladder and fell. S/P ORIF Left dital humeral fracture 02/02 Ortho ff. PT to evaluate patient today Hypertension, chronic: Continue Labetalol 100 mg PO BID. Well-controlled, monitor BP. History of Hyperreactive airway disease/Asthma, in remission. Continue Singulair. on Breo as OP prn - states has not been taking it for over a month now Chronic herpes prevention: Continue home Valtrex. HYpokalemia- 10 meq KCL IV x 1.02/02/ recheck today GERD/GI Prophylaxis: Protonix. IV- change to her po Zantac Anxiety- - patient calm DC planning- patient was set to go back to [place] this Tuesday DC today if cleared with Orthopedics- OP ff up in 1 week- but patient planning to go back to [place] soon. will try to get disc for home Diet- heart healthy Activity as tolerated. Non weightbearing LUE meds as above- continue home meds. Per ocet prn FF up with orthopedics as OP Problem Qualifiers (1) Elbow fracture, left: Qualified Codes: S42.402A - Unspecified fracture of lower end of left humerus, initial encounter for closed fracture (2) Fall: Qualified Codes: W19.XXXA - Unspecified fall, initial encounter Nathan Alexis MD Feb 03, 2017 08:32
[2017-02-03] MEDS ORDERED: CHOLECALCIFEROL (VIT D3) 1000 UNIT TAB PO SCH (09:00)
[2017-02-03 09:17] VITALS: O2SAT 97
[2017-02-03] MEDS: SODIUM CHLOR 0.45% 1000 ML INJ 1,000 ML IV SCH (10:30)
--- NOTE | 2017-02-03 10:30 | PD.ORT.PN ---
Subjective Subjective Remarks Doing well post surgery of left distal humerus Objective Vitals Vital Signs Date Time Temp Pulse Resp B/P (MAP) Pulse Ox O2 Delivery O2 Flow Rate FiO2 02/03/17 09:17 97 02/03/17 04:00 98.7 91 15 98/62 (74) 97 02/03/17 00:00 98.0 73 17 112/78 (89) 99 02/02/17 21:55 98.6 83 17 123/77 (92) 100 Room Air 02/02/17 21:45 82 17 136/80 (98) 100 Nasal Cannula 2 02/02/17 21:30 73 14 140/81 (100) 99 Nasal Cannula 2 02/02/17 21:15 92 14 189/115 (139) 100 Nasal Cannula 2 02/02/17 21:00 93 14 144/79 (100) 100 Nasal Cannula 2 02/02/17 20:57 97.5 90 8 142/84 (103) 100 Nasal Cannula 3 02/02/17 18:33 98 02/02/17 17:45 79 15 138/77 (97) 100 02/02/17 17:45 100 Room Air 02/02/17 17:45 79 02/02/17 16:00 98.4 84 18 121/85 (97) 98 02/02/17 12:00 98.5 75 17 105/83 (90) 98 I/O 02/02/17 02/02/17 02/02/17 02/03/17 02/03/17 02/03/17 07:00 15:00 23:00 07:00 15:00 23:00 Intake Total 696 ml 820 ml 1850 ml 1071 ml Output Total 500 ml 100 ml Balance 696 ml 320 ml 1750 ml 1071 ml Intake Oral 720 ml 0 ml 480 ml IV Total 696 ml 100 ml 550 ml 591 ml Other 1300 ml Output Urine Total 500 ml 0 ml Estimated Blood Loss 100 ml # Voids 3 1 # Bowel Movements 0 0 Result Diagram: 02/02/17 0549 02/02/17 0549 Imaging Last 24 hours Impressions Chest X-Ray 02/01/17 4660 Signed Impressions: Service Date/Time: Wednesday, February 01, 2017 18:00 - CONCLUSION: No acute cardiopulmonary disease demonstrated. Clemente Haider MD Objective Remarks LUE: +long arm splint. intact. NVI Assessment & Plan Assessment and Plan 1) Left Supracondylar Humerus Fx ORIF POD 1 -Nonweightbearing left upper extremity Occupational therapy for passive range of motion of elbow with removable splint. Reapply splint after passive range of motion. Discharge to home today Follow-up with Dr. Gallagher or [facility] in 2 weeks or orthopedic back home Raheem Rasmussen Jr. Feb 03, 2017 10:30
[2017-02-03 12:00] VITALS: BP 98/60; PULSE 82; RESP 16; TEMP 99.2; O2SAT 95
[2017-02-03 13:51] LABS: BICARBONATE 26.3 MEQ/L (21.0-32.0); POTASSIUM 3.6 MEQ/L (3.5-5.1)
[2017-02-03 17:02] VITALS: RESP 16
[2017-02-04] MEDS ORDERED: ZOFR4TAB3 SL (02:34)
== END 2017-02-03 18:41 | disposition home or self-care (01) | DRG 494 ==
LOC: NEPC 15:12 → NEDA 16:59 → OBSVTOIN 17:46 → N06A 18:32
PROVIDERS: ADMIT Internal Medicine; ATTEND Internal Medicine
PROC: 0PSGXZZ Reposition Left Humeral Shaft, External Approach (ICD-10-PCS; 2017-02-01)
PROC: 0PSL04Z Reposition Left Ulna with Internal Fixation Device, Open Approach (ICD-10-PCS; 2017-02-02)
PROC: 0PSG04Z Reposition Left Humeral Shaft with Internal Fixation Device, Open Approach (ICD-10-PCS; principal; 2017-02-02 18:18)
DX: S42.292A Other displaced fracture of upper end of left humerus, initial encounter for closed fracture (principal); I10 Essential (primary) hypertension; W11.XXXA Fall on and from ladder, initial encounter; Y92.9 Unspecified place or not applicable; J45.909 Unspecified asthma, uncomplicated; K21.9 Gastro-esophageal reflux disease without esophagitis; S52.092A Other fracture of upper end of left ulna, initial encounter for closed fracture; F41.9 Anxiety disorder, unspecified; E87.6 Hypokalemia
CPT/HCPCS: 24535; 71010; 73060; 73080; 73200; 76000; 80048; 80053; 83036; 83735; 84100; 84439; 84443; 85025; 93005; 94150; 96374; 96375; 99152; C1713; J0131; J0330; J0690; J1100; J1170; J1580; J1885; J2175; J2250; J2405; J2550; J2765; J3010; J3370; J3480; J7120

== ENCOUNTER 2017-02-04 00:35 | Emergency (ER) | payer BC, OTHER ==
[~2017-02-04] VITALS: Ht 157.5 cm; Wt 60.0 kg
[~2017-02-04 00:35] MED LIST: HYDR-3583 PO; LABE100T2 PO; MONT10TA2 PO; VALT500T PO
[2017-02-04 00:36] VITALS: BP 170/96; PULSE 98; RESP 20; TEMP 99; O2SAT 99
[2017-02-04] MEDS ORDERED: KETOROLAC TROMETHAMINE 30 MG/ML (IVP) VIAL IV PUSH ONE (01:15)
[2017-02-04] MEDS ORDERED: ONDANSETRON HCL 4 MG/2 ML VIAL IV PUSH ONE (01:15)
[2017-02-04] MEDS ORDERED: MORPHINE SULFATE 4 MG/ML INJ IV PUSH ONE (01:15)
[2017-02-04] MEDS ORDERED: ZOFR4TAB3 SL (02:34)
--- NOTE | 2017-02-04 02:36 | PD ---
HPI Chief Complaint: Pain: Acute or Chronic Time Seen by Provider: 01:10 Travel History International Travel<30 days: No Contact w/Intl Traveler<30days: No Traveled to known affect area: No History of Present Illness HPI 46-year-old female presents to the emergency department by private transportation the care of her spouse for complaint of left upper extremity pain. Patient states 2 days ago she fell off a ladder and broke her left elbow and humerus. Patient underwent surgical intervention yesterday by Dr. Gallagher and was discharged from the hospital this evening. Patient states was arriving home she noted some swelling of her upper extremity and hand and increasing pain that was not controlled by her Percocets a returns now for further evaluation. Patient denies any loss of sensation of the upper extremity and specifically the digits and has no pain that is increased with range of motion of the digits. Patient denies other concerns or complaints. No fever or chills. Patient rates her pain as severe. Patient denies chest pain pleuritic chest pain rib pain or shortness of breath. No hemoptysis. PFSH Past Medical History Narrative Medical Asthma hypertension open reduction internal fixation left humerus; no tobacco use: Nursing notes reviewed Asthma: Yes Autoimmune Disease: No Cancer: No Cardiovascular Problems: Yes Diabetes: No Diminished Hearing: No Endocrine: No Gastrointestinal Disorders: Yes GERD: Yes Genitourinary: No Hypertension: Yes Immune Disorder: No Musculoskeletal: No Neurologic: No Psychiatric: No Reproductive: No Respiratory: Yes Thyroid Disease: No Tetanus Vaccination: < 5 Years Influenza Vaccination: Yes ?: Not LMP: 01/23/2017 : 2 Miscarriage: 2 Ovarian Cysts: Yes Past Surgical History Gynecologic Surgery: Yes (D&C X2, OVARIAN CYST REMOVED) Other Surgery: Yes Social History Alcohol Use: No Tobacco Use: No Substance Use: No Allergies-Medications (Allergen,Severity, Reaction): Coded Allergies: latex (Verified Allergy, Mild, Rash, 02/04/17) codeine (Verified Allergy, Unknown, 02/04/17) Reported Meds & Prescriptions Reported Meds & Active Scripts Active Zofran Odt (Ondansetron Odt) 4 Mg Tab 4 Mg SL Q6HR PRN Hydrocodone-Acetaminophen 10-325 mg Tab 1 Tab PO Q4H PRN Reported Valtrex (Valacyclovir HCl) 500 Mg Tab 500 Mg PO DAILY Singulair (Montelukast Sodium) 10 Mg Tab 10 Mg PO HS Labetalol (Labetalol HCl) 100 Mg Tab 100 Mg PO BID Review of Systems Except as stated in HPI: all other systems reviewed are Neg General / Constitutional: No: Fever, Chills HENT: No: Congestion Cardiovascular: No: Chest Pain or Discomfort Gastrointestinal: No: Abdominal Pain Genitourinary: No: Flank Pain Musculoskeletal: Positive: Edema (left upper extremity), Pain Skin: No Rash ( left upper extremity) Neurologic: No: Weakness Psychiatric: No: Anxiety Hematologic/Lymphatic: No: Lymph Node Enlargement Physical Exam Narrative GENERAL: Well-developed well-nourished female in obvious discomfort no respiratory distress. SKIN: Warm and dry. HEAD: Normocephalic. EYES: No scleral icterus. No injection or drainage. NECK: Supple, trachea midline. No JVD or lymphadenopathy. CARDIOVASCULAR: Regular rate and rhythm without murmurs, gallops, or rubs. RESPIRATORY: Breath sounds equal bilaterally. No accessory muscle use. GASTROINTESTINAL: Abdomen soft, non-tender, nondistended. MUSCULOSKELETAL: No cyanosis, or edema. Attention left upper extremity mild edema of the fingers capillary refill brisk and less than 2 seconds per digit thumb apposition intact radial pulse 2+ to palpation confirmed with Doppler muscle belly of the forearm and biceps muscle and triceps muscle nontender and non-tense to palpation. BACK: Nontender without obvious deformity. No CVA tenderness. Data Data Last Documented VS Vital Signs Date Time Temp Pulse Resp B/P (MAP) Pulse Ox O2 Delivery O2 Flow Rate FiO2 02/04/17 02:36 02/04/17 00:36 99.0 98 20 99 Room Air Orders Orders ^ Saline Lock (02/04/17 01:10) Morphine Inj (Morphine Inj) (02/04/17 01:15) Ondansetron Inj (Zofran Inj) (02/04/17 01:15) Ketorolac Inj (Toradol Inj) (02/04/17 01:15) MDM Medical Decision Making Medical Screen Exam Complete: Yes Emergency Medical Condition: Yes Medical Record Reviewed: Yes Differential Diagnosis Postoperative pain, compartment syndrome, insufficient splinting Narrative Course Patient's splint was removed and identified to have multiple layers of what oral and multiple John wraps to the upper extremity as well as the splint placement with this removed patient's discomfort improved almost immediately patient was however given one-time dose of morphine sulfate as well as Zofran and IV fluids patient's muscle belly of the forearm and biceps soft nontender radial pulses 2+ to palpation capillary refill brisk and less than 2 seconds per digit thumb apposition intact sensory exam intact extremity was resplinted and patient's pain was markedly improved patient stable for outpatient management Diagnosis Primary Impression: Arm pain, left Additional Impression: Postoperative pain of extremity Referrals: Ignacio Gallagher MD call for appointment Patient Instructions: Narcotic given in the ED, General Instructions Additional Instructions: Follow-up with your orthopedist call office to schedule follow-up appointment Wear sling Wear splint Take pain medication as prescribed Takes Zofran as prescribed as needed for nausea and/or vomiting May use ice pack intermittently to upper extremity decrease soft tissue swelling Return to the emergency department for any concerns or change in condition Med/Other Pt SpecificInfo: Prescription(s) given Scripts Ondansetron Odt (Zofran Odt) 4 Mg Tab 4 MG SL Q6HR Y for Nausea/Vomiting, #10 TAB 0 Refills Prov: Yareli Thapa MD 02/04/17 Disposition: 01 DISCHARGE HOME Condition: Stable Yareli Thapa MD Feb 04, 2017 02:36
== END 2017-02-04 02:45 | disposition home or self-care (01) ==
LOC: NEPC 00:35
DX: G89.18 Other acute postprocedural pain (principal); M79.602 Pain in left arm; I10 Essential (primary) hypertension; K21.9 Gastro-esophageal reflux disease without esophagitis; J45.909 Unspecified asthma, uncomplicated
CPT/HCPCS: 96374; 99284; J1885; J2270; J2405